=== PATIENT | female | born 1990 | race Caucasian/White ===

== ENCOUNTER 2017-02-26 16:34 | Outpatient (CLI) | payer OTHER ==
[~2017-02-26] VITALS: Ht 167.6 cm; Wt 130.0 kg
[~2017-02-26 16:34] MED LIST: FLEXERIL10 MG PO; TOPAMAX100 MG PO; VICODIN 5-3001 EACH PO
[2017-02-26 16:57] VITALS: BP 153/59
[2017-02-26] MEDS ORDERED: MELATONIN3 MG PO (17:26)
[2017-02-26 17:54] VITALS: BP 125/73
[2017-02-26 18:35] VITALS: BP 139/82
[2017-02-26 19:27] VITALS: BP 125/65
[2017-02-26 22:55] VITALS: BP 121/68
[2017-02-27 02:41] VITALS: BP 114/65
[2017-02-27 07:13] VITALS: BP 119/76
== END 2017-02-27 11:00 | disposition home or self-care (01) ==
LOC: LDRP-OP 16:34 → 2WEST 16:36
DX: O41.03X0 Oligohydramnios, third trimester, not applicable or unspecified (principal); O34.219 Maternal care for unspecified type scar from previous cesarean delivery; Z3A.35 35 weeks gestation of pregnancy
CPT/HCPCS: 59025; 76818; G0378; J7120

== ENCOUNTER 2017-03-03 03:40 | Outpatient (CLI) | payer OTHER ==
[~2017-03-03 03:40] MED LIST changes: +MELATONIN3 MG PO
[2017-03-03 04:13] VITALS: BP 139/72
[2017-03-19] MEDS ORDERED: EXCEDRIN EXTRA1 EACH PO (15:57)
[2017-03-19] MEDS ORDERED: ZANTAC150 MG PO (15:58)
== END 2017-03-03 05:10 | disposition home or self-care (01) ==
LOC: LDRP-OP 03:40 → 2WEST 03:41 → LDRP-OP 04-27 11:50
DX: O26.893 Other specified pregnancy related conditions, third trimester (principal); Z3A.36 36 weeks gestation of pregnancy
CPT/HCPCS: 59025; G0378

== ENCOUNTER 2017-03-13 07:20 | Outpatient (CLI) | payer OTHER ==
[~2017-03-13] VITALS: Ht 165.1 cm; Wt 127.9 kg
[2017-03-13 07:50] VITALS: BP 114/69
[2017-03-13 09:02] LABS: APPEARANCE CLOUDY ((CLEAR)); BILIRUBIN NEGATIVE; BLOOD NEGATIVE; COLOR YELLOW ((YELLOW)); GLUCOSE (STRIP) NEGATIVE; KETONES NEGATIVE; LEUKOCYTES LARGE; NITRITE NEGATIVE; PROTEIN (STRIP) 30; SPECIFIC GRAVITY 1.018 (1.000-1.030)
[2017-03-13 09:22] LABS: BASOPHIL (%) 0.3 % (0-1); EOSINOPHIL COUNT 0.1 K/uL (0-0.3); HEMATOCRIT 33.5 % (36.0-46.0); HEMOGLOBIN 10.7 G/DL (11.9-15.5); IMMATURE GRANULOCYTE (%) 0.9 % (0.0-0.7); LYMPHOCYTE (%) 15.3 % (15-42); LYMPHOCYTE COUNT 1.6 K/uL (1.0-2.8); MCHC 31.9 G/DL (30.0-36.0); MCV 87.7 FL (83-99); MONOCYTE (%) 5.8 % (3-12); MONOCYTE COUNT 0.6 K/uL (0-0.8); NEUTROPHIL (%) 76.7 % (45-76); NEUTROPHIL COUNT 7.9 K/uL (1.8-6.4); PLATELET COUNT 231 K/uL (156-360); RBC DIS.WIDTH-CV 15.9 % (11.8-14.6); RBC DIS.WIDTH-SD 49.7 % (39-53); RED BLOOD COUNT 3.82 M/uL (3.80-5.20); WHITE BLOOD COUNT 10.3 K/uL (4.1-10.2)
[2017-03-13 09:44] VITALS: BP 122/79
[2017-03-13 09:54] LABS: ALBUMIN 3.2 G/DL (3.2-4.8); ALKALINE PHOSPHATASE 111 IU/L (3-129); ALT (GPT) 19 IU/L (3-49); AST (GOT) 22 IU/L (2-34); CHLORIDE 104 MEQ/L (99-109); CREATININE 0.6 MG/DL (0.6-1.3); GFR ESTIMATE (CALCULATED) > 59 mL/min/; GLUCOSE 77 mg/dL (70-99); POTASSIUM 3.4 MEQ/L (3.7-5.4); SODIUM 138 MEQ/L (136-147); TOTAL BILIRUBIN 0.4 MG/DL (0.0-1.0); TOTAL PROTEIN 6.3 G/DL (6.4-8.3); UREA NITROGEN (BUN) 6 mg/dL (9-23)
[2017-03-13 10:06] LABS: BACTERIA 2+ /HPF; CALCIUM OXALATE CRYSTALS 2+ /HPF; EPITHELIAL CELLS 1+ /HPF; MUCUS 3+ /LPF; RED BLOOD CELLS NONE SEEN /HPF (0-5); UCUL ADDED? YES
[2017-03-13 11:37] VITALS: BP 117/71
== END 2017-03-13 11:55 | disposition home or self-care (01) ==
LOC: LDRP-OP 07:20 → 2WEST 07:21 → LDRP-OP 04-27 05:22
PROVIDERS: Obstetrics & Gynecology
DX: O36.8130 Decreased fetal movements, third trimester, not applicable or unspecified (principal); Z3A.37 37 weeks gestation of pregnancy; O99.613 Diseases of the digestive system complicating pregnancy, third trimester; K52.9 Noninfective gastroenteritis and colitis, unspecified; O26.893 Other specified pregnancy related conditions, third trimester; R42 Dizziness and giddiness
CPT/HCPCS: 59025; 80053; 81003; 82570; 84156; 85025; 87086; G0378; J7120

== ENCOUNTER 2017-03-22 09:55 | Inpatient (IN) | payer OTHER ==
[~2017-03-22] VITALS: Ht 165.1 cm; Wt 127.9 kg
[~2017-03-22 09:55] MED LIST changes: +EXCEDRIN EXTRA1 EACH PO; +ZANTAC150 MG PO
[2017-03-22 10:12] VITALS: BP 129/80
[2017-03-22 11:37] LABS: HEMATOCRIT 34.6 % (36.0-46.0); MCH 28.1 PG (29.0-34.0); MCHC 31.8 G/DL (30.0-36.0); MCV 88.3 FL (83-99); PLATELET COUNT 251 K/uL (156-360); RBC DIS.WIDTH-CV 16.1 % (11.8-14.6); RBC DIS.WIDTH-SD 51.7 % (39-53); RED BLOOD COUNT 3.92 M/uL (3.80-5.20); WHITE BLOOD COUNT 11.1 K/uL (4.1-10.2)
[2017-03-22 11:57] LABS: ALBUMIN 3.2 G/DL (3.2-4.8); CHLORIDE 104 MEQ/L (99-109); POTASSIUM 4.8 MEQ/L (3.7-5.4); SODIUM 134 MEQ/L (136-147); TOTAL BILIRUBIN 0.4 MG/DL (0.0-1.0)
[2017-03-22 12:03] LABS: ALKALINE PHOSPHATASE 135 IU/L (3-129); ALT (GPT) 16 IU/L (3-49); AST (GOT) 19 IU/L (2-34); CREATININE 0.6 MG/DL (0.6-1.3); GFR ESTIMATE (CALCULATED) > 59 mL/min/; GLUCOSE 85 mg/dL (70-99); TOTAL PROTEIN 6.4 G/DL (6.4-8.3); UREA NITROGEN (BUN) 9 mg/dL (9-23)
[2017-03-22 14:03] VITALS: BP 133/85
[2017-03-22 14:37] VITALS: BP 136/74
[2017-03-22 14:54] VITALS: BP 144/68
[2017-03-22 20:26] VITALS: BP 134/60
[2017-03-22 22:29] VITALS: BP 137/71
[2017-03-23 03:19] VITALS: BP 122/74
[2017-03-23 06:49] LABS: BASOPHIL (%) 0.3 % (0-1); EOSINOPHIL (%) 0 % (0-5); IMMATURE GRANULOCYTE (%) 0.5 % (0.0-0.7); LYMPHOCYTE (%) 10.2 % (15-42); LYMPHOCYTE COUNT 1.5 K/uL (1.0-2.8); MCH 26.9 PG (29.0-34.0); MCHC 30.7 G/DL (30.0-36.0); MCV 87.4 FL (83-99); MONOCYTE (%) 7.7 % (3-12); MONOCYTE COUNT 1.1 K/uL (0-0.8); NEUTROPHIL (%) 81.3 % (45-76); PLATELET COUNT 256 K/uL (156-360); RBC DIS.WIDTH-CV 16.3 % (11.8-14.6); RBC DIS.WIDTH-SD 50.9 % (39-53); WHITE BLOOD COUNT 14.8 K/uL (4.1-10.2)
[2017-03-23 06:50] LABS: HEMOGLOBIN 8.3 G/DL (11.9-15.5); RED BLOOD COUNT 3.09 M/uL (3.80-5.20)
[2017-03-23 07:21] VITALS: BP 133/84
[2017-03-23] MEDS ORDERED: MOTRIN800 MG PO (10:33)
[2017-03-23] MEDS ORDERED: HYDROCODON-ACE1 EAC7 PO (10:33)
[2017-03-23] MEDS ORDERED: FEOSOL325 MG PO (10:33)
[2017-03-23 10:45] VITALS: BP 134/82
[2017-03-23 14:37] VITALS: BP 125/68
[2017-03-23 19:43] VITALS: BP 137/72
[2017-03-23 22:56] VITALS: BP 114/56
[2017-03-24 03:50] VITALS: BP 90/51
[2017-03-24 07:44] VITALS: BP 117/76
[2017-03-24 11:21] VITALS: BP 120/60
[2017-03-24 15:13] VITALS: BP 120/65
[2017-03-24 23:50] VITALS: BP 109/72
[2017-03-25 07:10] VITALS: BP 111/66
== END 2017-03-25 15:15 | disposition home or self-care (01) | DRG 765 ==
LOC: LDRP-OP 09:55 → 2WEST 09:56 → LDRP-OP 12:21 → 2WEST 17:36 → LDRP-OP 04-27 12:59
PROVIDERS: Obstetrics & Gynecology
PROC: 10D00Z1 Extraction of Products of Conception, Low, Open Approach (ICD-10-PCS; principal; 2017-03-22)
DX: O41.03X0 Oligohydramnios, third trimester, not applicable or unspecified (principal); O34.211 Maternal care for low transverse scar from previous cesarean delivery; O99.824 Streptococcus B carrier state complicating childbirth; O99.02 Anemia complicating childbirth; D50.0 Iron deficiency anemia secondary to blood loss (chronic); O99.214 Obesity complicating childbirth; E66.9 Obesity, unspecified; Z68.43 Body mass index [BMI] 50.0-59.9, adult; Z3A.39 39 weeks gestation of pregnancy; Z37.0 Single live birth
CPT/HCPCS: 76818; 80053; 85025; 85027; 86850; 86900; 86901; 88307; J0131; J0330; J1100; J1170; J1580; J1885; J2274; J2405; J3010; J7050; J7120